=== PATIENT | female | born 1990 | race Caucasian/White ===

== ENCOUNTER 2017-09-07 11:36 | Emergency (ER) | payer MEDICAID ==
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
== END 2017-09-07 12:31 | disposition home or self-care (01) ==
LOC: DL.ED 11:36
DX: T25.222A Burn of second degree of left foot, initial encounter (principal); Z88.1 Allergy status to other antibiotic agents; Z88.0 Allergy status to penicillin; Z79.899 Other long term (current) drug therapy; X10.2XXA Contact with fats and cooking oils, initial encounter
CPT/HCPCS: 99283